=== PATIENT | male | born 1955 | race Caucasian/White ===

== ENCOUNTER 2019-02-25 10:10 | Day surgery (SDC) | payer MEDICARE ==
[2019-02-22 09:24] VITALS: BMI 26.4
[~2019-02-25 10:10] MED LIST: Lidocaine 1% PF 5 ML VIAL ONE; Ondansetron PF 4 MG/2 ML Vial ONE; PROPOFOL 200 MG/20 ML VIAL ONE; ePHEDrine/0.9% NaCl/PF SYRINGE 50 mg/10 ml ONE
[2019-02-25] MEDS ORDERED: Midazolam HCl 2 mg/2 ml Vial ONE (11:43)
[2019-02-25] MEDS ORDERED: Fentanyl 100 MCG/2 ML VIAL ONE ×3 (11:43→15:13)
[2019-02-25 11:58] LABS: Calc. Creatinine Clearance 112 mL/min (70-130); Estimated GFR-MDRD Greater than 90
--- NOTE | 2019-02-25 12:06 | RAD ---
XR Chest Pa Lat STANDARD History: Lung cancer Comparison: None. Findings: There are nodular density projecting the right upper lobe. Remainder the lungs are clear. N o pneumothorax. No effusion. No acute osseous abnormality. Impression: Nodular densities projecting over the right upper lobe for which nonemergent chest CT rec ommended.
--- NOTE | 2019-02-25 13:33 | RAD ---
LUMBAR SPINE SERIES 4 VIEWS WITH FLEXION AND EXTENSION: Date: 02/25/19 HISTORY: Back pain. FINDINGS: Vertebroplasty changes of L5 are noted. There is some minimal loss of vertebral body height of the isbell perior end plate of L2. Very mild disc narrowing at the L1-2 and L4-5 levels. No abnormal motion in f lexion or extension. IMPRESSION: 1. Vertebroplasty changes of L5. 2. Very minimal loss of vertebral body of superior end plate of L2. 3. No abnormal motion seen on flexion or extension views. POS: [facility]
--- NOTE | 2019-02-25 13:34 | RAD ---
THORACIC SPINE 3 VIEWS: Date: 02/25/19 HISTORY: Back pain. FINDINGS: There is some mild S-shaped scoliotic change to the spine. The bones appear somewhat demineralized. D egenerative osteophytes are seen. No compression fracture seen. Pedicles are intact. IMPRESSION: Minimal scoliosis with mild arthritic change. POS: [facility]
--- NOTE | 2019-02-25 13:35 | RAD ---
CERVICAL SPINE SERIES 3 VIEWS WITH FLEXION AND EXTENSION: Date: 02/25/19 HISTORY: Postop. FINDINGS: Patient has undergone anterior cervical fusion with placement of plate and screws spanning from C4-C7 . Markers of a disc implant are within the confines of the disc level. Degenerative disc narrowing is seen at C3-4. No abnormal motion seen on the flexion or extension views. Marked disc narrowing is se en at C7-T1. IMPRESSION: Postoperative changes of the spine. POS: [facility]
[2019-02-25] MEDS ORDERED: Ondansetron PF 4 MG/2 ML Vial ONE (14:56)
[2019-02-25] MEDS ORDERED: HYDROcodone/Acetaminophen 5/325 mg Tablet ONE ×2 (16:08)
--- NOTE | 2019-02-25 16:32 | MRI ---
MRI CERVICAL SPINE WITH AND WITHOUT CONTRAST: 02/25/2019 HISTORY: A 63-year-old male with lung cancer and ICD-10 M54.12 cervical radiculopathy M54.2, cervical pain, a nd K76.[address] Nichols notified Dr. Garcia of the cord compression via [employer] message at 3:35 p.m. on 02/02, and via standard text message at 3:34 p.m. COMPARISON: None. FINDINGS: There is no abnormal intramedullary enhancing mass. Vertebral body heights are maintained. Metallic A CDF hardware at C4, C5, C6 and C7. Ankylosis of the C5 and C6 vertebral bodies across the disk space: successful fusion at that level. C2-C3 disk space maintained. Disk space narrowing is moderate at C3-C4 and severe at C4-C5, C5-C6, C6 -C7 and C7-T1. Broad-based disk-osteophytic bar complexes protrude into the anterior aspect of the sp inal canal at multiple levels. Uncinate process osteophytes encroach upon bilateral neural foramina a t multiple levels. There is severe left facet DJD at C2-C3 and a greater degree of left facet DJD at C3-C4 with subchondral cysts, bone marrow edema, joint effusion and bone marrow enhancement. C1-C2: No high grade central stenosis. C2-C3: Ligamentum flavum thickening. Moderate central spinal canal stenosis. Moderate-severe right ne ural foraminal stenosis. Mild left neural foraminal stenosis. C3-C4: Prominent broad-based disk/osteophytic bar complex plus superimposed central disk herniation d eeply indent the spinal cord. Moderate to severe ligamentum flavum thickening indents the dorsal surf rachna of the spinal cord. The spinal cord is compressed and has abnormal T2 hyperintense intramedullary signal, consistent with edema. The CSF signal is completely obliterated. Very severe central spinal canal stenosis. Severe bilateral neural foraminal stenosis. C4-C5: Minimal degenerative retrolisthesis of C4 on C5. Moderate to severe central spinal canal steno sis. Moderate to severe right neural foraminal stenosis. Severe left neural foraminal stenosis. C5-C6: Mild to moderate central spinal canal stenosis. Moderate to severe bilateral neural foraminal stenosis. C6-C7: Mild to moderate central spinal canal stenosis. Moderate to severe right neural foraminal sten osis. Severe left neural foraminal stenosis. C7-T1: No central stenosis. Moderate bilateral neural foraminal stenosis. IMPRESSION: 1. Very severe central spinal canal stenosis and cord compression at C3-C4 by disk herniation and lig amentum flavum thickening. Mild cord edema at this level. 2. Status post anterior cervical diskectomy and fusion at C4-5-6-7. 3. Cervical spondylosis, consisting of multilevel degenerative disk disease and left upper high grade facet osteoarthrosis. 4. Severe left C3-C4 facet arthritis. 5. No evidence of metastasis in cervical spine. CODE CR ADDENDUM: Dr. Garcia texted back acknowledgement of message at 5:10 pm 02/25/2019. POS: [facility]
--- NOTE | 2019-02-25 16:56 | MRI ---
MRI THORACIC SPINE WITH AND WITHOUT CONTRAST: Date: 02/25/19 HISTORY: 63-year-old male with lung cancer and ICD-10: M54.6 thoracic spine pain, K76.89, liver lesion. FINDINGS: Thoracic vertebral body heights are maintained. No major bone marrow signal abnormality. No evidence of abnormal enhancement or mass in the intramedullary, extramedullary-intradural, extradural, intraos seous, or perivertebral, spaces. Thoracic spinal cord is normal in size and signal. No syringohydromy wili. Tiny left paracentral disc-osteophyte protrusions encroach upon the left anterior aspect of the spinal canal at T6-7 and T7-T1, without contacting the spinal cord. No significant central spinal ca nal stenosis at any level. No severe neural foraminal stenosis at any level. IMPRESSION: 1. No evidence of metastatic disease in the thoracic spine. 2. Minimal degenerative changes at two levels in the mid thoracic spine. 3. Otherwise negative. POS: [facility]
--- NOTE | 2019-02-25 17:22 | MRI ---
MRI LUMBAR SPINE WITH AND WITHOUT CONTRAST: DATE: 02/25/19 HISTORY: 63-year-old male with lung cancer and ICD-10: S32.050A compression fracture of L5 vertebra, initial encounter, M54.5 lumbar back pain, K76.89, liver lesion. COMPARISON: There is a plain radiograph from today, but no prior MRIs or CTs of the lumbar spine. TECHNIQUE: Multiple sequences obtained in axial and sagittal planes, pre and post IV injection of gadolinium-bas ed contrast agent: 18 mL MultiHance. FINDINGS: Plain radiograph from today demonstrates five lumbar-type vertebrae. No major spondylolisthesis. Depression of the central superior end plate of L5. Minimal loss of overall height with mild loss of height of the posterior aspect of the vertebral body at L5. There is also a moderate, somewhat broad depression of the superior end plate of L2, with irregularit y. There is extensive heterogeneously T2 hyperintense and T1 hypointense signal involving much of the L2 vertebral body, associated with enhancement of bone marrow involving the areas of signal abnormal ity. The height of L2 vertebral body peripherally is not decreased, despite the central loss of heigh t. T12-L1: Essentially normal. L1-2: Mild disc bulge. Mild disc space narrowing. Mild to moderate bilateral neural foraminal stenos is. Mild central spinal canal stenosis. Ligamentum flavum thickening. Mild bilateral facet DJD. L2-3: Conus medullaris terminates at lower L2 level. This level is essentially normal other than a m inimal disc bulge. L3-4: Moderate ligamentum flavum thickening. Disc space maintained. Mild disc bulge. Mild to moderat e right neural foraminal stenosis. Mild left neural foraminal stenosis. Right facet joint effusion. M ild central spinal canal stenosis. L4-5: Mild bilateral facet DJD. No high grade disc space narrowing. Diffuse disc bulge. Moderate lig amentum flavum thickening. No high grade central stenosis. Mild to moderate bilateral neural foramina l stenosis. L5-S1: Right paracentral small focal disc herniation mildly displaces the right S1 nerve root slight ly posterolaterally within the thecal sac. Despite this, there is no high grade central spinal canal stenosis. Mild to moderate disc space narrowing. Diffuse disc bulge. Mild to moderate bilateral neura l foraminal stenosis. No high grade facet DJD. IMPRESSION: 1. Small right paracentral-lateral focal disc herniation at L5-S1, mildly impinging on the right S1 nerve root. 2. Status post vertebroplasty of an old mild compression fracture of L5. 3. Bone marrow edema and bone marrow enhancement involving the L2 vertebral body centrally. This may represent a large, active Schmorl's node. A metastatic deposit is less likely but not excluded. Ther efore, serial follow-up MRI's of lumbar spine with and without contrast are recommended, beginning in 3 months. 4. No high grade central spinal canal stenosis at any level. BENJI Cook POS: [facility]
--- NOTE | 2019-02-26 14:11 | EKG ---
Test Reason : PREOP Blood Pressure : / mmHG Vent. Rate : 064 BPM Atrial Rate : 064 BPM P-R Int : 178 ms QRS Dur : 098 ms QT Int : 430 ms P-R-T Axes : 060 -11 018 degrees QTc Int : 443 ms Sinus rhythm with occasional Premature ventricular complexes Otherwise normal ECG No previous ECGs available Confirmed by ANNITA MCCLAIN, DR. Mcdonald ([id number]) on 02/26/2019 2:11:01 PM Referred By: LATISHA Confirmed By:DR. Tamara ARIZA MD
== END 2019-02-25 16:23 | disposition home or self-care (01) ==
LOC: SDC/OP 10:10
PROVIDERS: ATTEND Neurological Surgery
DX: M50.10 Cervical disc disorder with radiculopathy, unspecified cervical region (principal); M47.22 Other spondylosis with radiculopathy, cervical region; M48.02 Spinal stenosis, cervical region; S32.029A Unspecified fracture of second lumbar vertebra, initial encounter for closed fracture; S32.059A Unspecified fracture of fifth lumbar vertebra, initial encounter for closed fracture; M81.0 Age-related osteoporosis without current pathological fracture; M51.27 Other intervertebral disc displacement, lumbosacral region; M41.9 Scoliosis, unspecified; K76.89 Other specified diseases of liver; Z79.899 Other long term (current) drug therapy; Z87.891 Personal history of nicotine dependence; Z88.0 Allergy status to penicillin
CPT/HCPCS: 36415; 71046; 72040; 72072; 72100; 72156; 72157; 72158; 82565; 93005; 93010; J2001; J2250; J2405; J2704; J3010

== ENCOUNTER 2019-04-19 11:34 | Day surgery (SDC) | payer MEDICARE ==
[2019-04-18 10:44] VITALS: BMI 25.7
[~2019-04-19 11:34] MED LIST changes: -Lidocaine 1% PF 5 ML VIAL ONE; +Magnevist 469MG/ML 20 ML VIAL ONE; -Ondansetron PF 4 MG/2 ML Vial ONE; -PROPOFOL 200 MG/20 ML VIAL ONE; -ePHEDrine/0.9% NaCl/PF SYRINGE 50 mg/10 ml ONE
[2019-04-19] MEDS ORDERED: Midazolam HCl 2 mg/2 ml Vial ONE (12:49)
[2019-04-19] MEDS ORDERED: Fentanyl 100 MCG/2 ML VIAL ONE ×3 (12:49→14:14)
[2019-04-19 13:03] LABS: Calc. Creatinine Clearance 111 mL/min (70-130); Estimated GFR-MDRD Greater than 90
[2019-04-19] MEDS ORDERED: PROPOFOL 200 MG/20 ML VIAL ONE (13:35)
[2019-04-19] MEDS ORDERED: ePHEDrine/0.9% NaCl/PF SYRINGE 50 mg/10 ml ONE (13:35)
[2019-04-19] MEDS ORDERED: Ondansetron PF 4 MG/2 ML Vial ONE (13:35)
[2019-04-19] MEDS ORDERED: Promethazine HCl 25 MG/ML VIAL ONE (14:07)
--- NOTE | 2019-04-19 14:34 | CT ---
CT Chest WO Con HISTORY: Lung abnormality on chest x-ray COMPARISON: None. FINDINGS: Absence of IV contrast reduces the sensitivity of the exam particularly for the evaluation of mediast inal, hilar and vascular structures. There are vascular calcifications with a 3.7 cm infrarenal abdominal aortic aneurysm which is incompl etely visualized. No pleural or pericardial effusions are seen. There are bullous changes bilaterally. There is scarring in the lung apices. No evidence of focal are as of consolidation, pneumothoraces, lung nodules or masses is seen. There are degenerative changes in the spine. There is irregularity of the surface of the liver sugges tive of cirrhosis. IMPRESSION: 1. Emphysema. 2. Cirrhosis of the liver 3. A 3.7 cm infrarenal abdominal aortic aneurysm.
--- NOTE | 2019-04-19 14:39 | RAD ---
LUMBAR SPINE 3 VIEWS: Date: 04/19/2019 INDICATION: History of vertebral anomaly. COMPARISON: Prior exam dated 02/25/2019. FINDINGS: Vertebroplasty change at L5 is stable appearing. The mild superior end plate compression abnormality at L2 is stable appearing. Spinal alignment is preserved. Diffuse osteopenia is similar appearing. IMPRESSION: Stable exam. POS: [facility]
--- NOTE | 2019-04-19 14:47 | MRI ---
MRI LUMBAR SPINE WITH AND WITHOUT CONTRAST: INDICATION: History of vertebral anomaly and Schmorl's node with low back pain. COMPARISON: Prior MRI lumbar spine with and without contrast dated 02/2019. CONTRAST: 20 cc MultiHance. FINDINGS: The superior end plate compression abnormality with associated Schmorl's node defect appears unchange d in height. There is some mild residual edema seen surrounding the herniation pit of the end plate itself. Mild end plate compression abnormality with vertebroplasty change at L5 is stable-appearing. The conus is seen to terminate at approximately L2. Bone marrow signal intensity otherwise is within normal limits. There is mild aneurysmal dilatation of the distal abdominal aorta measuring 3.4 cm. Visualized aspects of the retroperitoneum appear within normal limits. At L5-S1, there is a broad-based bulge with a superimposed right paracentral protrusion that contacts the traversing right S1 nerve root. This has not appreciably changed from the comparison examinatio n. Loss of disk space height and facet hypertrophy induce mild bilateral neural foraminal narrowing at L5-S1. At L4-5, there is a broad-based bulge with facet hypertrophy inducing mild bilateral neural foraminal narrowing. This is stable to the prior exam. At L3-4, there is a broad-based bulge with facet hypertrophy inducing mild bilateral neural foraminal narrowing which is stable to the prior exam. At L2-3, there is a broad-based bulge, with mild bilateral neural foraminal narrowing. At L1-L2, there is a mild broad-based bulge with facet hypertrophy inducing mild bilateral neural for aminal narrowing which is stable to the prior exam. Postcontrast images demonstrate some mild sub-end plate enhancement near the Schmorl's node along the superior margin of L2. There is no overt evidence to suggest the presence of metastatic disease. IMPRESSION: 1. Stable degenerative disk disease and facet osteoarthrosis of the lumbar spine with multilevel kylee ral foraminal narrowing. 2. Right paracentral disk protrusion at L5-S1 remains prominent and does contact the traversing righ t S1 nerve root. 3. Stable superior end plate compression abnormality with Schmorl's node involving L2 with some mild residual sub-end plate edema and enhancement. There is no overt evidence to suggest the presence of metastatic disease. 4. Infrarenal abdominal aortic aneurysm measuring 3.4 cm. POS: [facility]
== END 2019-04-19 15:30 | disposition home or self-care (01) ==
LOC: SDC/OP 11:34 → EDSTATUS 12:00 → SDC/OP 15:30
PROVIDERS: ATTEND Neurological Surgery
DX: M51.46 Schmorl's nodes, lumbar region (principal); M51.36 Other intervertebral disc degeneration, lumbar region; M48.061 Spinal stenosis, lumbar region without neurogenic claudication; M51.27 Other intervertebral disc displacement, lumbosacral region; J43.9 Emphysema, unspecified; K74.60 Unspecified cirrhosis of liver; I71.4 Abdominal aortic aneurysm, without rupture; M85.88 Other specified disorders of bone density and structure, other site; Z79.899 Other long term (current) drug therapy; Z88.0 Allergy status to penicillin; Z98.890 Other specified postprocedural states
CPT/HCPCS: 71250; 72100; 72158; 82565; A9579; J2250; J2405; J2550; J2704; J3010